=== PATIENT | male | born 1955 | race Caucasian/White ===

== ENCOUNTER 2021-07-13 15:28 | Emergency (ER) | payer MEDICAID, MEDICARE, OTHER ==
[~2021-07-13] VITALS: Ht 177.8 cm; Wt 77.1 kg
[~2021-07-13 15:28] MED LIST: BUPR75TA8 PO; DICL75TA5 PO; EMTR1TAB12 PO; GABA400C; LAMO200T10 PO; NEFA50TA PO; NEVI400T PO; TEMA7.5C12 PO; TRAZ300T2 PO
--- NOTE | 2021-07-13 16:40 | NUR ---
URINE COLLECTED AND SENT
[2021-07-13] MEDS: ONDANSETRON HCL/PF 4 MG/2 ML VIAL IVP ONE (16:58)
[2021-07-13] MEDS: MORPHINE SULFATE INJ 2 MG/ML DISP.SYRIN IV ONE (16:58)
[2021-07-13 17:24] LABS: ALBUMIN 4.1 g/dL (3.4-5.0); BILIRUBIN,DIRECT 0.1 mg/dL (0.0-0.2); BILIRUBIN,TOTAL 0.6 mg/dL (0.2-1.0); CALCIUM, SERUM 8.8 mg/dL (8.5-10.1); CREATININE 0.8 mg/dL (0.6-1.3); TOTAL PROTEIN, SERUM 7.4 g/dL (6.4-8.2)
[2021-07-13 17:30] LABS: BASOPHILS % (AUTO) 0.2 % (0.0-2.0); EOSINOPHILS % (AUTO) 2.4 % (0.0-6.0); HEMATOCRIT 41 % (39-51); HEMOGLOBIN 13.9 g/dL (13.5-17.5); LYMPHOCYTES # (AUTO) 1.5 K/uL (0.8-4.8); LYMPHOCYTES % (AUTO) 54.8 % (20.0-44.0); MEAN CORPUSCULAR HGB CONC 34 g/dl (31.0-36.0); MEAN CORPUSCULAR VOLUME 86 fL (80-96); MONOCYTES # (AUTO) 0.5 K/uL (0.1-1.30); MONOCYTES % (AUTO) 19.1 % (2.0-12.0); NEUTROPHILS # (AUTO) 0.6 K/uL (1.8-8.9); NEUTROPHILS % (AUTO) 23.5 % (43.0-81.0); PLATELET COUNT (AUTO) 146 K/uL (150-450); RED BLOOD CELL COUNT(AUTO) 4.77 MIL/uL (4.5-6.0); WHITE BLOOD COUNT (AUTO) 2.7 K/uL (4.3-11.0)
[2021-07-13 17:36] LABS: POTASSIUM 4.2 mmol/L (3.5-5.1)
[2021-07-13 17:37] LABS: BILIRUBIN,URINE NEGATIVE (NEGATIVE); COLOR,URINE YELLOW (YELLOW); LEUKOCYTE ESTERASE ,URINE NEGATIVE (NEGATIVE); NITRITE, URINE NEGATIVE (NEGATIVE); PROTEIN,URINE NEGATIVE (NEGATIVE); UGLUCOSE NEGATIVE (NEGATIVE)
[2021-07-13 17:56] LABS: BACTERIA,URINE None seen /HPF (None Seen); RBC,URINE 0-2 /HPF (0-2); SQUAMOUS EPITHELIAL CELL,UR 0-2 /HPF (None Seen); WBC,URINE 0-2 /HPF (0-3)
[2021-07-13] MEDS ORDERED: HYDR-4303 PO (18:00)
[2021-07-13 18:11] VITALS: BP 133/98
[2021-07-13 18:25] LABS: EOSINOPHILS % (MANUAL) 4 % (0-4); LYMPHOCYTES % (MANUAL) 43 % (16-48); MONOCYTES % (MANUAL) 8 % (0-11.0); NEUTROPHILS % (MANUAL) 44 (42-76); REACTIVE LYMPHOCYTES 1 % (0-0)
== END 2021-07-13 18:05 | disposition home or self-care (01) ==
LOC: ER 15:40
DX: R10.32 Left lower quadrant pain (principal); F32.A Depression, unspecified; Z86.16 Personal history of COVID-19; Z79.899 Other long term (current) drug therapy
CPT/HCPCS: 36415; 80048-TC; 80076-TC; 81001; 83690-TC; 85025-TC

== ENCOUNTER 2022-09-10 18:31 | Emergency (ER) | payer OTHER ==
[~2022-09-10] VITALS: Ht 177.8 cm; Wt 86.2 kg
[~2022-09-10 18:31] MED LIST changes: +HYDR-4303 PO
--- NOTE | 2022-09-10 18:50 | NUR ---
BIBS C/O COUGHING FOR TWO MONTHS. PLACED IN BED, AAOX4, BREATHING EVEN AND UNLABORED SATURATING AT 96%RA
--- NOTE | 2022-09-10 19:25 | NUR ---
X-RAY TECH AT BEDSIDE
[2022-09-10] MEDS ORDERED: BENZONATATE 100 MG CAPSULE PO ONE (19:49)
[2022-09-10] MEDS ORDERED: BENZONATATE 100 MG CAPSULE PO PRN (20:00)
[2022-09-10] MEDS ORDERED: ALBU8.5H8 INH (20:25)
--- NOTE | 2022-09-10 20:35 | NUR ---
Patient discharged to home in stable condition. Written and verbal after care instructions given. Patient verbalizes understanding of instruction.
[2022-09-10 20:37] VITALS: BP 125/85; TEMP 98.3; O2SAT 98
== END 2022-09-10 20:35 | disposition home or self-care (01) ==
LOC: ER 18:32
DX: R05.9 Cough, unspecified (principal); N40.0 Benign prostatic hyperplasia without lower urinary tract symptoms; F32.A Depression, unspecified; Z79.899 Other long term (current) drug therapy
CPT/HCPCS: 71045-TC

== ENCOUNTER 2024-02-09 01:45 | Emergency (ER) | payer OTHER ==
[~2024-02-09] VITALS: Ht 167.6 cm; Wt 72.6 kg
[~2024-02-09 01:45] MED LIST changes: +ALBU8.5H8 INH
[2024-02-09 01:51] VITALS: BP 166/90; TEMP 97.9; O2SAT 99
[2024-02-09] MEDS ORDERED: BACI500P4 TP (02:04)
[2024-02-09] MEDS ORDERED: ACETAMINOPHEN ES 500 MG TABLET ONE (02:14)
[2024-02-09] MEDS: ACETAMINOPHEN ES 500 MG TABLET PO ONE (02:21)
== END 2024-02-09 03:00 | disposition home or self-care (01) ==
LOC: ER 02:01
DX: R21 Rash and other nonspecific skin eruption (principal); R51.9 Headache, unspecified; F32.A Depression, unspecified; I10 Essential (primary) hypertension; N40.0 Benign prostatic hyperplasia without lower urinary tract symptoms; Z21 Asymptomatic human immunodeficiency virus [HIV] infection status; Z79.624 Long term (current) use of inhibitors of nucleotide synthesis; Z79.899 Other long term (current) drug therapy; Z87.19 Personal history of other diseases of the digestive system

== ENCOUNTER 2025-01-11 19:18 | Emergency (ER) | payer OTHER ==
[~2025-01-11] VITALS: Ht 172.7 cm; Wt 81.6 kg
[~2025-01-11 19:18] MED LIST changes: +BACI500P4 TP
[2025-01-11] MEDS ORDERED: Magnesium 1GM/D5W 100ML PREMIX 100 ML IV ONE ×2 (19:43→20:50)
[2025-01-11] MEDS: IV NS 0.9% 500 ML BAG IV ONE (19:45)
[2025-01-11 19:48] LABS: PLATELET COUNT (AUTO) 112 K/uL (150-450); RED BLOOD CELL COUNT(AUTO) 4.66 MIL/uL (4.5-6.0); RED CELL DISTRIBUTION WIDTH 13.9 % (11.5-15.0); WHITE BLOOD COUNT (AUTO) 4.6 K/uL (4.3-11.0)
[2025-01-11] MEDS: Magnesium 1GM/D5W 100ML PREMIX 200 ML IV ONE (19:50)
[2025-01-11 19:51] VITALS: O2SAT 99
[2025-01-11] MEDS: IPRATROPIUM NEB FS 0.5 MG/2.5 ML AMPUL.NEB NEB ONE (19:51)
[2025-01-11] MEDS: ALBUTEROL FS 2.5 MG/3 ML VIAL.NEB NEB ONE (19:51)
[2025-01-11] MEDS ORDERED: IPRATROPIUM NEB FS 0.5 MG/2.5 ML AMPUL.NEB ONE (19:58)
[2025-01-11] MEDS ORDERED: ALBUTEROL FS 2.5 MG/3 ML VIAL.NEB ONE (19:58)
[2025-01-11 20:01] LABS: CALCIUM, SERUM 8.9 mg/dL (8.5-10.1); CREATININE 0.9 mg/dL (0.6-1.3); SODIUM SERUM 138 mmol/L (136-145); UREA NITROGEN, BLOOD 13 mg/dL (7-18)
[2025-01-11 20:03] LABS: ASPARTATE AMINOTRANSFERASE 29 U/L (15-37); TOTAL PROTEIN, SERUM 7.2 g/dL (6.4-8.2)
[2025-01-11 20:04] LABS: LACTIC ACID 1.7 mmol/L (0.4-2.0)
[2025-01-11 20:06] LABS: INR 1.05 (0.91-1.10)
[2025-01-11] MEDS ORDERED: LEVOFLOXACIN 750 MG /D5W 150ML 150 ML IV ONE (20:20)
[2025-01-11] MEDS: LEVOFLOXACIN 750 MG /D5W 150ML 150 ML IV ONE (20:45)
[2025-01-11 20:51] VITALS: O2SAT 96
[2025-01-12 00:40] VITALS: BP 146/94; TEMP 98.1; O2SAT 96
[2025-01-12 04:30] LABS: LYMPHOCYTES % (MANUAL) 31 % (16-48); NEUTROPHILS % (MANUAL) 42 (42-76)
[2025-01-12 04:31] LABS: MONOCYTES % (MANUAL) 27 % (0-11.0); PLATELET ESTIMATE DECREASED
== END 2025-01-12 00:40 | disposition left against medical advice (07) ==
LOC: ER 19:35
DX: J44.1 Chronic obstructive pulmonary disease with (acute) exacerbation (principal); F17.200 Nicotine dependence, unspecified, uncomplicated; F32.A Depression, unspecified; I10 Essential (primary) hypertension; N40.0 Benign prostatic hyperplasia without lower urinary tract symptoms; Z86.16 Personal history of COVID-19; Z59.71 Insufficient health insurance coverage; Z79.624 Long term (current) use of inhibitors of nucleotide synthesis; Z79.899 Other long term (current) drug therapy; Z86.2 Personal history of diseases of the blood and blood-forming organs and certain disorders involving the immune mechanism; Z20.822 Contact with and (suspected) exposure to COVID-19
CPT/HCPCS: 99285; 96365; 71045; 96366; 96375; 87426; 96368; 93005; 87804 ×2; 84145; 85027; 80048; 87040 ×2; 83605; 80076; 85007; 36415; 84484 ×2; 85730; 94644; J1956; J3475 ×2; J2919